=== PATIENT | female | born 1955 | race Caucasian/White ===

== ENCOUNTER → 2018-03-21 13:05 | Outpatient (CLI) | payer OTHER, SELFPAY ==
[2018-03-21 14:36] LABS: Anion Gap 9 (5-15); BUN 20 mg/dL (7-18); Calcium,Total 8.7 mg/dL (8.5-10.1); Chloride 100 mmol/L (98-107); Creatinine, Serum 0.87 mg/dL (0.55-1.02); EST Glomerular Filtration Rate 70 mL/min (>60); Est Glom Filt Rate - Afr Amer 85 mL/min (>60); Glucose 97 mg/dL (74-106); Sodium Level 138 mmol/L (136-145)
== END ==
PROVIDERS: Family Provider Family Medicine; PCP Family Medicine; Visit Provider Internal Medicine Cardiovascular Disease
DX: I47.1 Supraventricular tachycardia (principal); Z79.899 Other long term (current) drug therapy
CPT/HCPCS: 36415; 80048

== ENCOUNTER → 2018-04-02 09:46 | Outpatient (CLI) | payer OTHER, SELFPAY ==
[2018-04-02 11:01] LABS: Erythrocyte Sedimentation Rate 13 mm/hr (0-30)
[2018-04-02 11:24] LABS: BUN 17 mg/dL (7-18); Creatinine, Serum 0.93 mg/dL (0.55-1.02); EST Glomerular Filtration Rate 65 mL/min (>60); Glucose 87 mg/dL (74-106)
[2018-04-02 11:25] LABS: Anion Gap 7 (5-15); BUN/Creat Ratio 18.3 RATIO (10-20); Chloride 107 mmol/L (98-107); Est Glom Filt Rate - Afr Amer 78 mL/min (>60); Potassium 4.1 mmol/L (3.5-5.1); Sodium Level 143 mmol/L (136-145)
[2018-04-02 11:30] LABS: CRP 6.38 mg/L (0.0-3.0)
== END ==
PROVIDERS: Internal Medicine Cardiovascular Disease; Family Provider Family Medicine; PCP Family Medicine; Visit Provider Ophthalmology
DX: E87.6 Hypokalemia (principal); H34.231 Retinal artery branch occlusion, right eye
CPT/HCPCS: 36415; 80048; 85652; 86140

== ENCOUNTER → 2018-04-11 12:55 | Outpatient (CLI) | payer OTHER, SELFPAY ==
--- NOTE | 2018-04-11 12:55 | DT_ITS ---
This patient was seen during an EMR downtime April 04, 2018 - April 11, 2018. This patient may have a combination of paper and electronic documentation or all paper documentation. All documentation is viewable within the e-chart portion of [employer] for each patient visit.
--- NOTE | 2018-04-11 12:59 | CDU_ITS ---
Reason For Study: Branch retinal artery occlusion Rt. Velocities/BP Lt. Velocities/BP Prox CCA 97.9/17.0 cm/sec. Prox CCA 110.0/18.9 cm/sec. Mid CCA 87.9/21.7 cm/sec. Mid CCA 104.0/27.5 cm/sec. Dist CCA 80.9/24.0 cm/sec. Dist CCA 102.0/26.7 cm/sec. Prox ICA 89.7/39.9 cm/sec. Prox ICA 91.5/25.8 cm/sec. Mid ICA 118.0/39.7 cm/sec. Mid ICA 79.8/31.9 cm/sec. Dist ICA 73.9/27.0 cm/sec. Dist ICA 102.0/39.3 cm/sec. Rt. ICA/CCA = 1.3. Lt. ICA/CCA = .98. Prox ECA 87.6/21.4 cm/sec. Prox ECA 67.4/13.5 cm/sec. Rt. Vert. 55.7/19.9 cm/sec. Lt. Vert. 48.7/18.8 cm/sec. Right Extracranial There is intimal thickening but no significant atherosclerotic plaque noted in the right common carotid artery. There is no significant atherosclerotic plaque noted in the right internal carotid artery. The right internal carotid artery is very tortuous. There is no significant atherosclerotic plaque noted in the right external carotid artery. Antegrade flow is noted in the right vertebral artery. Left Extracranial There is intimal thickening but no significant atherosclerotic plaque noted in the left common carotid artery. There is no significant atherosclerotic plaque noted in the left internal carotid artery. The left internal carotid artery is very tortuous. There is no significant atherosclerotic plaque noted in the left external carotid artery. Antegrade flow is noted in the left vertebral artery. Procedure Carotid Duplex [id number]. Exam performed in department. Interpretation Summary No significant atherosclerotic plaque or stenosis noted in the internal carotid arteries bilaterally. Flow within the vertebral arteries is antegrade bilaterally. Ordering Physician: Madi Astudillo Referring Physician: Madi Astudillo Performed By: Shannon Hunter RVT
== END ==
PROVIDERS: Family Provider Family Medicine; PCP Family Medicine; Visit Provider Ophthalmology
DX: H34.231 Retinal artery branch occlusion, right eye (principal)
CPT/HCPCS: 93880

== ENCOUNTER → 2018-05-18 11:40 | Outpatient (CLI) | payer OTHER, SELFPAY ==
[2018-05-18 13:01] LABS: Anion Gap 6 (5-15); BUN 14 mg/dL (7-18); Calcium,Total 9.1 mg/dL (8.5-10.1); Chloride 103 mmol/L (98-107); Creatinine, Serum 0.93 mg/dL (0.55-1.02); EST Glomerular Filtration Rate 64 mL/min (>60); Est Glom Filt Rate - Afr Amer 78 mL/min (>60); Glucose 97 mg/dL (74-106); Sodium Level 141 mmol/L (136-145)
== END ==
PROVIDERS: Family Provider Family Medicine; PCP Family Medicine; Visit Provider Internal Medicine Cardiovascular Disease
DX: I10 Essential (primary) hypertension (principal)
CPT/HCPCS: 36415; 80048

== ENCOUNTER → 2018-08-12 16:46 | Outpatient (CLI) | payer OTHER, SELFPAY ==
--- NOTE | 2018-08-12 16:48 | US_ITS ---
STUDY: ULTRASOUND OF THE FEMALE PELVIS - COMPLETE REASON FOR EXAM: Female, 62 years old. POST MENOPAUSAL BLEEDING TECHNIQUE: Transabdominal and Transvaginal. Endovaginal study was performed because there is poor visualization of the ovaries. TECHNICAL QUALITY: Adequate. COMPARISON: None. FINDINGS: The uterus is anteverted and is in a midline position. The uterus measures 6.2 x 4.2 x 2.4 cm. Normal uterine cervix. The endometrium measures 3 mm in thickness, and is hyperechoic. The endometrium there is a cystic focus. This may be artifact. There is no demonstrated myometrial mass. I.U.D. - The patient does not have an I.U.D. Right and left ovary are not visualized. There is no fluid in the cul-de-sac. Polycystic ovary disease: No. US/Transvaginal Non- IMPRESSION: Normal female pelvis. Normal endometrial thickness. Question of an endometrial cyst. Electronically Signed: Alexander Zarate MD at 17:52 EDT , Service support ,
== END ==
PROVIDERS: Family Provider Family Medicine; PCP Family Medicine; Referring Provider Obstetrics & Gynecology Gynecology; Visit Provider Obstetrics & Gynecology Gynecology
DX: N95.0 Postmenopausal bleeding (principal)
CPT/HCPCS: 76830

== ENCOUNTER → 2019-05-19 07:39 | Outpatient (CLI) | payer OTHER, SELFPAY ==
[2018-04-12 16:07] VITALS: BMI 27.7
[2019-05-19 08:24] LABS: Anion Gap 6 (5-15); BUN 19 mg/dL (7-18); BUN/Creat Ratio 19.6 RATIO (10-20); Calcium,Total 8.8 mg/dL (8.5-10.1); Chloride 102 mmol/L (98-107); Cholesterol 213 mg/dL (200); Creatinine, Serum 0.97 mg/dL (0.55-1.02); EST Glomerular Filtration Rate 61 mL/min (>60); Est Glom Filt Rate - Afr Amer 74 mL/min (>60); Glucose 102 mg/dL (74-106); High Density Lipoprotein 71 mg/dL; Potassium 3.6 mmol/L (3.5-5.1); Sodium Level 139 mmol/L (136-145); Triglycerides 111 mg/dL; Very Low Density Lipoprotein 22 mg/dL (5-40)
== END ==
PROVIDERS: Family Provider Family Medicine; PCP Family Medicine; Referring Provider Family Medicine; Visit Provider Family Medicine
DX: I10 Essential (primary) hypertension (principal); E78.00 Pure hypercholesterolemia, unspecified; I47.1 Supraventricular tachycardia
CPT/HCPCS: 36415; 80048; 80061; 86140

== ENCOUNTER → 2019-11-17 13:26 | Outpatient (CLI) | payer OTHER, SELFPAY ==
[2018-04-12 16:07] VITALS: BMI 27.7
== END ==
PROVIDERS: PCP Family Medicine; Referring Provider Family Medicine; Visit Provider Family Medicine
DX: R39.9 Unspecified symptoms and signs involving the genitourinary system (principal)
CPT/HCPCS: 87086; 87088

== ENCOUNTER → 2019-12-08 16:43 | Outpatient (CLI) | payer MEDICARE, SELFPAY ==
--- NOTE | 2019-12-08 16:48 | US_ITS ---
STUDY: RENAL ULTRASOUND - COMPLETE REASON FOR EXAM: Female, 64 years old. RECCURRING UTIS TECHNIQUE: Ultrasound evaluation of the kidneys was performed with real-time and static parikh-scale imaging. COMPARISON: None. FINDINGS: RIGHT KIDNEY: Normal location of the right kidney, which is normal in size. The right kidney measures 11.2 x 4.7 x 6.4 cm. There is a normal cortex of the right kidney. The renal cortex measures 2.1 cm. There are 2 anechoic cysts of the inferior right kidney measuring 2.6 x 1.5 x 1.6 cm and 1.3 x 1.7 x 2.2 cm. There are no right renal calculi. There is no right hydronephrosis. DISTAL RIGHT URETER: There is non-visualization of the distal right ureter. There is no demonstrated right ureterovesical junction calculus. There is a visualized right ureteral jet. LEFT KIDNEY: Normal location of the left kidney, which is normal in size. The left kidney measures 10.1 x 3.9 x 4.8 cm. There is a normal cortex of the left kidney. The renal cortex measures 1.1 cm. There is no left renal mass or cyst. 6-7 mm echogenic focus of the left kidney with Doppler artifact suggests possibility of a small calculus. There is no left hydronephrosis. DISTAL LEFT URETER: There is non-visualization of the distal left ureter. There is no demonstrated left ureterovesical junction calculus. There is a visualized left ureteral jet. BLADDER: The distended urinary bladder has a volume of 257 ml. There is a normal wall thickness of the distended urinary bladder. There is no demonstrated mass within the urinary bladder. There are no demonstrated bladder calculi. US/Kidney and Bladder IMPRESSION: 1. No hydronephrosis. 2. Possible 6-7 mm left renal calculus. 3. Right renal cysts. Electronically Signed: Heri Chamberlain MD (Brooks) at 14:48 EST , Service support ,
== END ==
PROVIDERS: PCP Family Medicine; Referring Provider Urology; Visit Provider Urology
DX: N39.0 Urinary tract infection, site not specified (principal)
CPT/HCPCS: 76770

== ENCOUNTER → 2019-12-20 18:29 | Outpatient (CLI) | payer MEDICARE, SELFPAY ==
--- NOTE | 2019-12-20 18:30 | CT_ITS ---
HISTORY: RECURRENT UTI ADDITIONAL HISTORY: None provided. TECHNIQUE: CT images were obtained of the abdomen and pelvis without IV contrast. Enteric contrast was not given. Number of images including paperwork: 445. A radiation dose optimization technique was used for this scan. COMPARISON: None FINDINGS: Evaluation of the abdominopelvic organs is limited in the absence of contrast. LOWER THORAX: No consolidation or pleural effusion. Large hiatal hernia partially visualized. Linear basilar subsegmental atelectasis versus scarring. LIVER: Multiple low density hepatic lesions compatible with cysts. GALLBLADDER: No radiopaque calculi. BILE DUCTS: No significant biliary dilatation. SPLEEN: Unremarkable. PANCREAS: Unremarkable. ADRENAL GLANDS: Unremarkable. KIDNEYS/URETERS: 3 cm right renal cyst. 1.2 cm left renal cyst. 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 BOWEL: No bowel obstruction. No significant bowel wall thickening. No localized inflammation. Colonic diverticulosis. Large amount of colonic stool. APPENDIX: Normal. FREE FLUID: No significant free fluid. FREE AIR: None. LYMPH NODES: No pathologic appearing adenopathy. PERITONEUM, RETROPERITONEUM AND MESENTERY: Otherwise unremarkable. VASCULATURE: Unremarkable as imaged. ABDOMINAL WALL: Unremarkable. PELVIS: Unremarkable bladder. OSSEOUS AND SOFT TISSUE STRUCTURES: No acute skeletal findings. Severe thoracolumbar scoliosis. CT/Abdomen/Pelvis without Cont IMPRESSION: No acute abdominopelvic abnormality. Large amount of colonic stool. Colonic diverticulosis. Additional findings above. Individualized dose optimization techniques were used for this CT. at 0253 Reported and signed by: Selene Wright MD Electronically Signed: Selene Wright MD at 2:53 EST Tel , Service support ,
== END ==
PROVIDERS: PCP Family Medicine; Referring Provider Urology; Visit Provider Urology
DX: N20.0 Calculus of kidney (principal)
CPT/HCPCS: 74176

== ENCOUNTER → 2020-05-07 07:38 | Outpatient (CLI) | payer MEDICARE, SELFPAY ==
[2018-04-12 16:07] VITALS: BMI 27.7
[2020-05-07 08:46] LABS: Anion Gap 5 (5-15); BUN 17 mg/dL (7-18); BUN/Creat Ratio 17.8 RATIO (10-20); CRP, High Sensitivity Cardiac 7.46 mg/L; Calcium,Total 9.3 mg/dL (8.5-10.1); Chloride 101 mmol/L (98-107); Cholesterol 202 mg/dL (200); Creatinine, Serum 0.96 mg/dL (0.55-1.02); EST Glomerular Filtration Rate 62 mL/min (>60); Est Glom Filt Rate - Afr Amer 75 mL/min (>60); Glucose 98 mg/dL (74-106); High Density Lipoprotein 77 mg/dL; Potassium 3.7 mmol/L (3.5-5.1); Sodium Level 137 mmol/L (136-145); Triglycerides 91 mg/dL; Very Low Density Lipoprotein 18 mg/dL (5-40)
== END ==
PROVIDERS: PCP Family Medicine; Referring Provider Family Medicine; Visit Provider Family Medicine
DX: I10 Essential (primary) hypertension (principal); R79.82 Elevated C-reactive protein (CRP)
CPT/HCPCS: 36415; 80048; 80061; 86141

== ENCOUNTER → 2020-06-05 07:49 | Outpatient (CLI) | payer MEDICARE, SELFPAY ==
[2018-04-12 16:07] VITALS: BMI 27.7
[2020-06-05 08:22] LABS: Anion Gap 3 (5-15); BUN 17 mg/dL (7-18); BUN/Creat Ratio 17.4 RATIO (10-20); Calcium,Total 8.6 mg/dL (8.5-10.1); Chloride 106 mmol/L (98-107); Creatinine, Serum 0.98 mg/dL (0.55-1.02); EST Glomerular Filtration Rate 61 mL/min (>60); Est Glom Filt Rate - Afr Amer 73 mL/min (>60); Glucose 94 mg/dL (74-106); Potassium 3.8 mmol/L (3.5-5.1); Sodium Level 138 mmol/L (136-145)
== END ==
PROVIDERS: PCP Family Medicine; Referring Provider Family Medicine; Visit Provider Family Medicine
DX: I10 Essential (primary) hypertension (principal)
CPT/HCPCS: 36415; 80048

== ENCOUNTER → 2021-02-25 07:52 | Outpatient (CLI) | payer MEDICARE, SELFPAY ==
[2018-04-12 16:07] VITALS: BMI 27.7
[2021-02-25 08:14] LABS: Absolute Lymphocyte Count 2.31 X10^3/uL (0.83-4.51); Absolute Neutrophil Count 4.1 X10^3/uL (2.0-7.7); Basophil# 0.09 X10^3/uL; Basophil% 1.2 % (0-1); Eosinophils% 5.4 % (0-5); Hematocrit 40.2 % (37-47); Hemoglobin 12.4 g/dL (12.0-15.0); Lymphocyte # 2.31 X10^3/ul (0.83-4.51); Mean Corp Hgb Conc 30.8 g/dL (32-36); Mean Corpuscular Hgb 27.7 pg (27.0-32.0); Mean Corpuscular Volume 89.9 fL (81-99); Mean Platelet Vol. 8.2 fl (6.2-12.0); Monocyte# 0.57 X10^3/uL; Monocyte% 7.7 % (0-10); NRBC Flagged by Analyzer 0 % (0-5); Neutrophil # 4.07 X10^3/uL (2.7-7.7); Neutrophil % 54.6 % (47-70); Platelet Count 363 K/mm3 (150-450); RBC Distribution Width CV 15.8 % (11.6-14.6); RBC Distribution Width SD 52.6 fl (35.1-43.9); Red Blood Count 4.47 M/mm3 (4.2-5.4); White Blood Count 7.5 K/mm3 (4.4-11.0)
[2021-02-25 08:51] LABS: AST(SGOT) 10 U/L (15-37); Alanine Aminotransfer ALT/SGPT 16 U/L (13-56); Alkaline Phosphatase 92 U/L (45-117); Anion Gap 3 (5-15); BUN 19 mg/dL (7-18); BUN/Creat Ratio 18.6 RATIO (10-20); Calcium,Total 8.9 mg/dL (8.5-10.1); Chloride 102 mmol/L (98-107); Cholesterol 236 mg/dL (200); Creatinine, Serum 1.02 mg/dL (0.55-1.02); EST Glomerular Filtration Rate 58 mL/min (>60); Est Glom Filt Rate - Afr Amer 70 mL/min (>60); Globulin 3.9 g/dL (2.2-4.2); Glucose 106 mg/dL (74-106); High Density Lipoprotein 88 mg/dL; Potassium 4.1 mmol/L (3.5-5.1); Protein, Total 7.9 g/dL (6.4-8.2); Sodium Level 137 mmol/L (136-145); Triglycerides 103 mg/dL; Very Low Density Lipoprotein 21 mg/dL (5-40)
== END ==
PROVIDERS: PCP Family Medicine; Referring Provider Family Medicine; Visit Provider Family Medicine
DX: I10 Essential (primary) hypertension (principal); E78.00 Pure hypercholesterolemia, unspecified
CPT/HCPCS: 36415; 80053; 80061; 85025

== ENCOUNTER 2021-12-18 09:05 | Outpatient (CLI) | payer MEDICARE, SELFPAY ==
--- NOTE | 2021-12-18 09:10 | EKG12_ITS ---
Test Reason : PREOP Blood Pressure : / mmHG Vent. Rate : 098 BPM Atrial Rate : 098 BPM P-R Int : 164 ms QRS Dur : 086 ms QT Int : 346 ms P-R-T Axes : 038 -21 058 degrees QTc Int : 441 ms Normal sinus rhythm Inferior infarct , age undetermined Anterior infarct , age undetermined Abnormal ECG Confirmed by HUGH ALLRED, SHANNAN ([id number]), editor managing newspaper VELVET ORONA ([id number]) on 12/18/2021 1:38:31 PM Referred By: Lucho Lombardi Confirmed By:CITLALI REESE MD
--- NOTE | 2021-12-18 09:11 | RAD_ITS ---
STUDY: X-RAY CHEST REASON FOR EXAM: Female, 66 years old. Preop for hand surgery TECHNIQUE: 2 PA and 2 lateral views of the chest. COMPARISON: 2016 FINDINGS: Lungs are expanded, no superimposed acute pulmonary process. There is a stable retrocardiac hiatal hernia causing compressive atelectasis in the medial left lung base. There is no demonstrated pleural abnormality. Normal size heart. Normal mediastinum and adriana. Normal visualized pulmonary arteries. There is atherosclerotic calcification of the aortic arch with tortuosity. There are diffuse degenerative changes of the visualized thoracic spine with a rotatory scoliosis.. Normal visualized ribs, clavicles, and shoulders. There is no demonstrated abnormality of the visualized soft tissue structures of the upper abdomen. RAD/Chest PA and Lateral IMPRESSION: No acute pulmonary process Stable large retrocardiac hiatal hernia causing compressive atelectasis in the medial left lung base Electronically Signed: Vincent Mclaughlin MD at 16:19 EST ,
[2021-12-18 11:33] LABS: Hematocrit 41.8 % (37-47); Hemoglobin 13.5 g/dL (12.0-15.0); Mean Corp Hgb Conc 32.3 g/dL (32-36); Mean Corpuscular Hgb 29.3 pg (27.0-32.0); Mean Corpuscular Volume 90.7 fL (81-99); Mean Platelet Vol. 8.5 fl (6.2-12.0); Platelet Count 402 K/mm3 (150-450); RBC Distribution Width CV 14.5 % (11.6-14.6); RBC Distribution Width SD 48.1 fl (35.1-43.9); Red Blood Count 4.61 M/mm3 (4.2-5.4); White Blood Count 7.7 K/mm3 (4.4-11.0)
[2021-12-18 11:39] LABS: Prothrombin Time (Protime)PT. 12.8 SECONDS (11.7-14.9)
[2021-12-18 11:47] LABS: Partial Thromboplast Time 25.6 Seconds (24.1-36.2)
[2021-12-18 12:06] LABS: Anion Gap 4 (5-15); BUN 23 mg/dL (7-18); BUN/Creat Ratio 20.5 RATIO (10-20); Calcium,Total 9.7 mg/dL (8.5-10.1); Chloride 100 mmol/L (98-107); Creatinine, Serum 1.12 mg/dL (0.55-1.02); EST Glomerular Filtration Rate 52 mL/min (>60); Est Glom Filt Rate - Afr Amer 62 mL/min (>60); Glucose 95 mg/dL (74-106); Potassium 4.1 mmol/L (3.5-5.1); Sodium Level 136 mmol/L (136-145)
== END 2021-12-18 23:59 | disposition home or self-care (01) ==
PROVIDERS: PCP Registered Nurse; Referring Provider Student in an Organized Health Care Education/Training Program; Visit Provider Student in an Organized Health Care Education/Training Program
DX: Z01.810 Encounter for preprocedural cardiovascular examination (principal); Z01.818 Encounter for other preprocedural examination; Z01.811 Encounter for preprocedural respiratory examination; R94.31 Abnormal electrocardiogram [ECG] [EKG]; Z79.01 Long term (current) use of anticoagulants
CPT/HCPCS: 36415; 71046; 80048; 85027; 85610; 85730; 93005

== ENCOUNTER 2022-02-25 12:00 | Outpatient (RCR) | payer MEDICARE, SELFPAY ==
--- NOTE | 2022-02-03 14:26 | HP.OTEVAL ---
Patient's Visit Information BRANDNO BARRIGA is a 66 year old F, referred to Occupational Therapy by Dr. Lucho Lombardi DO, with a diagnosis of Unil. 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 Date of Evaluation: 01/30/22 Occupational Therapist: Nilda Sullivan, AURAR/Dante, CHT - Subjective Pt. is a 66 y/o female here to right thumb spica custom orthosis fabrication. She has a soft cast on R hand/wrist. Her significant other present for eval. Per pt. report she had this sx. about 8 years ago. pt continued to have difficulty with pain- she then decided to have another reconstruction sx to decrease her pain and increase her IND. with ADLs and IADLS. Pt. had tightrope suspensionplasty on 12-29-21, MCP fusion 40 degrees. She had a CMC arthroplasty on 12-29-21, about 5 weeks ago, cast off today 01-30-22 and soft splint on. She is a retired nurse, arrived with significant other. - ADLs Dressing: Bra, Button shirt, Coat, Pants, Socks Fasteners: Buttons, Zippers Bathing: Handle washcloth & soap, Wash hair, Squeeze shampoo bottle Comments: compensating by using L hand Kitchen: Chop with knife, Peel fruits & vegetables, Open jars, Open bottle caps, Lift gallon of milk, Pour from pitcher, Lift saucepan, Take dish out of oven, Load/unload plate grainer apprentice, Place dish in microwave Household: Vacuum, Sweep/mop, Laundry Miscellaneous: Use cell phone, Unlock front door, Open medication bottle, Hold change, Use computer keyboard, Open doors/Including car door Comments: pt. demo'd difficulty with doffing/donning jacket and using zipper. Pt. stating she is having difficulty with all ADL and IADL tasks as she is R handed. She has been compensating by using L hand as much as possible and relying on significant other. - Pain Right Wrist 0 - Objective Her hand has swelling edema, not pitting no c/o numbness or tingling. No c/o pain. - ROM Shoulder: WFL Elbow: WFL Forearm: WFL Wrist: -5*flex, 35*ext R, L flex 40*, ext35*, UD L 35* R30* Radial L15* R40* CMC: 10* R, 20L MP: 65*L, Fusion of R IP: 59*L, 1*R ROM Comments: all other digits moving well- sore but able to make light composite fist - Strength Shoulder: WFL Elbow: WFL Forearm: WFL Wrist: R not tested Multi Punch Operator: NT on R , 50# L Lateral Pinch: NT R, 15# L Tripod Pinch: NT R,16# L Tip-to-Tip Pinch: NT R, 8# L Strength Comments: will test strength at later date - Edema Wrist: R- 6 3/4 PIP: R-1st 7 7 7 11/04 4th 5 / thumb 8 - Sensation Stereognosis: Normal - Right, Normal - Left Kinesthesia: Normal - Right, Normal - Left Proprioception: Normal - Right, Normal - Left Sensation Comments: pt. denied sensation deficits - Quick DASH-Disab of Arm,Shoulder& Hand Quick DASH Score: 70.4525 - Goals Goal:: wiill not initiate goal until 6-8 weeks s/p. pt. to improve R hand strength by 30# for increased ind. with ADL independence by d.c Goal:: pt. to increase R thumb IP ROM by 45 degrees for independence with UB dressing within 8 weeks. Goal:: Pt. to increase R hand dexterity/coordination for ADL tasks and home management by d/c Goal:: Pt. to complete UB dressing at Mod I level by week 12 s/p from sx Goal:100% adherence to protocol: Yes Comment: Tightrope protocol Goal:Daily scar massage when approriate: Yes Goal:ROM equal to unaffected hand: Yes Goal:Multi Punch Operator/Pinch strength at least 75% of unaffected hand: Yes Goal:No pain with affected hand use: Yes Goal:PIP Circumferences equal to unaffected hand: Yes - Rehabilitation General Assessment: Pt. is 5 weeks post op of Tightrope suspensionplasty. Pt. is in need of custom orthosis. She has limited ROM at this time and therefore has difficulty with ADL & IADL tasks. pt demo need for skilled OT services 2x a week for 6 weeks -will be provided to increase AROM, scar management, and strengthening of dominant hand per protocol and instructions. Per report: Pt. is 66 y/o female, right hand dominant. She underwent right first metacarpal joint arthroplasty with ligamentous reconstruction tendon interposition within FCR tendon by another provider 10 years ago. Therapy session was directly supervised and doc. reviewed and approved by Nilda ALEAMN/Dante, CHT. Rehabilitation Potential: Excellent - Anticipated Interventions A/AAROM/PROM, Strengthening, Edema Control, Scar Care, Massage, Wound Care - Visit Plan Frequency: 2x /Week Duration: 6 Weeks General Plan: 4 weeks post op: pt. to begin AROM to thumb CMC joint. Include abduction/abduction, flexion, & extension. Avoid thumb opposition until 8 weeks post op. Fore-arm thumb spica splint to be worn at night/sleeping. 6 weeks post op: forearm-based thumb spica splint to be discontinued. Progressive strengthening exercise program. 10 weeks post op: if pt. has not achieved functional ROM continue OT for 2-4 more weeks. 12 weeks post op: pt. to resume normal daily activities. TEXT: Thank you for the opportunity to evaluate your patient. For Medicare and Medicare HMO plans, please review the plan of care and approve it. It will need to be FAXED BACK to us at [phone] for Medicare purposes. Please let me know if there are questions or concerns regarding this plan of care. Physician Signature: Date:
--- NOTE | 2022-02-19 08:25 | HP.OTREVAL ---
Dr. Lucho Lombardi, DO, It has been my pleasure to treat BRANDON BARRIGA over the last 7 visits for Unil. 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 Please see the progress note below for an update on the occupational therapy plan of care! Subjective: Pt arrived wearing comfort cool brace when out and at night sleeping- ( therapist advised wearing orthosis at night vs comfort cool for 2 more weeks). States yesterday was the worse day with swelling in a long time but reports she did not do anything abnormal- went to [employer] to pts boat went shopping and out to eat. Today is better. Appt Wednesday with after her therapy -. pt is pleased she does not have pain with tasks just concerned with swelling- pt states she has issues with inflammation in her body Objective/Function: Thumb IP ROM 32*. wrist ROM 68*/34* ( tight). R thumb IP 30*. R wrist 6 3/4 , L wrist 6 1/4. R MCP's 7 3/4 , L MCP's 7 1/2. R IF proximal to PIP 7 cm, L IF 6cm. R MF proximal to PIP 7 cm, L MF 6cm. RRF proximal to PIP 6cm, LRF 5cm. RLF proximal to PIP 5cm, LLF 5cm. pt is wearing her comfort cool during the day when out of home-. and sometimes with daily tasks- states she is sleeping in comfort cool thumb brace ( therapist advised to sleep in orthosis) until week 9 due to swelling pt struggles with continued ulnar deviation of wrist with resting her arm on table or in lap-. pt denes pain just struggles with swelling ( would pt benefit from anti inflammatory). Therapy has ed. pt on wrist and thumb ergonomics- Joint protection and has initiated strengthening to pts tolerance- pt has returned to performing all ADLS at this time with some compensation. Plan Frequency: 2x /Week Duration: 3 Weeks Plan: pt to see Wednesday for follow-up pain not really issue just swelling- pt is progressing. . Start BTE. add in UB shoulder/elbow and forearm along with project development manager and wrist- pinch to pts. dominga. Goals - Goals Patient Goals: Regain Mobility, Regain Strength, Decrease Swelling/Stiffness, Improve Fine Motor Skills, Use Hand/Wrist/Arm Normally Again, Increase ROM, Be More Independent in ADLS, Resume Former Household Responsibilities (Cooking,Cleaning,Yard, etc.) Other: R handed Goal:: wiill not initiate goal until 6-8 weeks s/p. pt. to improve R hand strength by 30# for increased ind. with ADL independence by d.c Goal:: pt. to increase R thumb IP ROM by 45 degrees for independence with UB dressing within 8 weeks. Goal:: Pt. to increase R hand dexterity/coordination for ADL tasks and home management by d/c Goal:: Pt. to complete UB dressing at Mod I level by week 12 s/p from sx Goal:100% adherence to protocol: Yes Goal:Daily scar massage when approriate: Yes Goal:ROM equal to unaffected hand: Yes Goal:Car Cleaning Supervisor/Pinch strength at least 75% of unaffected hand: Yes Goal:No pain with affected hand use: Yes Goal:PIP Circumferences equal to unaffected hand: Yes Anticipated Interventions Anticipated Interventions: A/AAROM/PROM, Strengthening, Edema Control, Scar Care, Massage, Wound Care Please do not hesitate to contact me at [phone] by phone or if you have questions or concerns regarding this new plan of care! Sincerely, Nilda Sullivan, OTR/L, CHT
--- NOTE | 2022-02-27 07:55 | HP.OTDCSUM ---
It has been my pleasure to treat BRANDON BARRIGA under orders from Dr. Lucho Lombardi DO, for the diagnosis of Unil. 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 Please see the following information for a summary of their discharge status. % Improvement: 85 Objective/Function: R Linen Room Houseperson 20#, L Linen Room Houseperson 25#. Thumb IP ROM 35*. wrist ROM 68*/34* ( tight). R thumb IP 30*. R wrist 6 01/06 , L wrist 6 11/04. R MCP's 7 01/02 , L MCP's 7 11/02. R IF proximal to PIP 6.5 cm, L IF 6cm. R MF proximal to PIP 7 cm, L MF 6cm. RRF proximal to PIP 5 5/8cm, LRF 5cm. RLF proximal to PIP 5cm, LLF 4.5cm. pt is wearing her comfort cool during the day when out of home-. and sometimes with daily tasks- states she is sleeping in comfort cool thumb brace ( therapist advised to sleep in orthosis) until week 9 due to swelling pt struggles with continued ulnar deviation of wrist with resting her arm on table or in lap-. pt denes pain just struggles with swelling ( would pt benefit from anti inflammatory). Therapy has ed. pt on wrist and thumb ergonomics- Joint protection and has initiated strengthening to pts tolerance- pt has returned to performing all ADLS at this time with some compensation. Patient Goals: Regain Mobility, Regain Strength, Decrease Swelling/Stiffness, Improve Fine Motor Skills, Use Hand/Wrist/Arm Normally Again, Increase ROM, Be More Independent in ADLS, Resume Former Household Responsibilities (Cooking,Cleaning,Yard, etc.) Other: R handed Goal:: wiill not initiate goal until 6-8 weeks s/p. pt. to improve R hand strength by 30# for increased ind. with ADL independence by d.c Goal:: pt. to increase R thumb IP ROM by 45 degrees for independence with UB dressing within 8 weeks. Goal:: Pt. to increase R hand dexterity/coordination for ADL tasks and home management by d/c Goal:: Pt. to complete UB dressing at Mod I level by week 12 s/p from sx Goal:100% adherence to protocol: Yes Goal:Daily scar massage when approriate: Yes Goal:ROM equal to unaffected hand: Yes Goal:Linen Room Houseperson/Pinch strength at least 75% of unaffected hand: Yes Goal:No pain with affected hand use: Yes Goal:PIP Circumferences equal to unaffected hand: Yes Plan: Pt would like discharged , pt able to open jars, not new, and use of clothes pins If there are questions or concerns regarding this patient's occupational therapy, please fell free to call me at [phone]. Thank you for the referral of this patient. Sincerely, Nilda Sullivan, OTR/L, CHT
== END 2022-02-25 19:00 | disposition home or self-care (01) ==
LOC: OT 12:00
PROVIDERS: PCP Registered Nurse; Referring Provider Student in an Organized Health Care Education/Training Program; Visit Provider Student in an Organized Health Care Education/Training Program
DX: M18.31 Unilateral post-traumatic osteoarthritis of first carpometacarpal joint, right hand (principal)
CPT/HCPCS: 97110; 97140; 97165; 97530; 97760

== ENCOUNTER → 2022-02-27 | Outpatient (CLI) | payer MEDICARE, SELFPAY ==
[2022-02-27 09:31] LABS: Absolute Lymphocyte Count 2.44 X10^3/uL (0.83-4.51); Absolute Neutrophil Count 3.9 X10^3/uL (2.0-7.7); Basophil# 0.06 X10^3/uL; Basophil% 0.8 % (0-1); Eosinophils% 4.1 % (0-5); Hematocrit 37.7 % (37-47); Lymphocyte # 2.44 X10^3/ul (0.83-4.51); Lymphocyte % 33.7 % (19-41); Mean Corp Hgb Conc 31.8 g/dL (32-36); Mean Corpuscular Hgb 29.5 pg (27.0-32.0); Mean Corpuscular Volume 92.6 fL (81-99); Mean Platelet Vol. 8.2 fl (6.2-12.0); Monocyte% 6.9 % (0-10); NRBC Flagged by Analyzer 0 % (0-5); Neutrophil # 3.93 X10^3/uL (2.7-7.7); Neutrophil % 54.4 % (47-70); Platelet Count 421 K/mm3 (150-450); RBC Distribution Width CV 15.9 % (11.6-14.6); RBC Distribution Width SD 53.6 fl (35.1-43.9); Red Blood Count 4.07 M/mm3 (4.2-5.4); White Blood Count 7.2 K/mm3 (4.4-11.0)
[2022-02-27 10:19] LABS: ALB/GLOB Ratio 1.1 RATIO (0.9-2.4); AST(SGOT) 7 U/L (15-37); Alanine Aminotransfer ALT/SGPT 14 U/L (13-56); Albumin, Serum 3.8 g/dL (3.2-5.0); Alkaline Phosphatase 85 U/L (45-117); Anion Gap 3 (5-15); BUN 13 mg/dL (7-18); CRP, High Sensitivity Cardiac 8.12 mg/L; Calcium,Total 8.8 mg/dL (8.5-10.1); Chloride 107 mmol/L (98-107); Cholesterol 225 mg/dL (200); Creatinine, Serum 0.93 mg/dL (0.55-1.02); EST Glomerular Filtration Rate 64 mL/min (>60); Est Glom Filt Rate - Afr Amer 77 mL/min (>60); Globulin 3.6 g/dL (2.2-4.2); Glucose 112 mg/dL (74-106); High Density Lipoprotein 81 mg/dL; Potassium 3.9 mmol/L (3.5-5.1); Protein, Total 7.4 g/dL (6.4-8.2); Sodium Level 140 mmol/L (136-145); Triglycerides 105 mg/dL; Very Low Density Lipoprotein 21 mg/dL (5-40)
== END | disposition home or self-care (01) ==
LOC: LAB 09:02
PROVIDERS: PCP Registered Nurse; Referring Provider Registered Nurse; Visit Provider Registered Nurse
DX: E78.00 Pure hypercholesterolemia, unspecified (principal)
CPT/HCPCS: 36415; 80053; 80061; 85025; 86141

== ENCOUNTER → 2022-07-08 | Outpatient (CLI) | payer MEDICARE, SELFPAY ==
[2022-07-08 17:36] LABS: Anion Gap 7 (5-15); BUN 18 mg/dL (7-18); BUN/Creat Ratio 18.6 RATIO (10-20); Calcium,Total 9.2 mg/dL (8.5-10.1); Chloride 106 mmol/L (98-107); Creatinine, Serum 0.97 mg/dL (0.55-1.02); EST Glomerular Filtration Rate 61 mL/min (>60); Est Glom Filt Rate - Afr Amer 74 mL/min (>60); Glucose 105 mg/dL (74-106); Magnesium 2.3 mg/dL (1.6-2.6); Potassium 4.4 mmol/L (3.5-5.1); Sodium Level 139 mmol/L (136-145)
== END | disposition home or self-care (01) ==
LOC: LAB 16:30
PROVIDERS: PCP Family Medicine; Referring Provider Internal Medicine Cardiovascular Disease; Visit Provider Internal Medicine Cardiovascular Disease
DX: I10 Essential (primary) hypertension (principal)
CPT/HCPCS: 36415; 80048; 83735

== ENCOUNTER → 2023-01-25 | Outpatient (CLI) | payer MEDICARE, SELFPAY | END | disposition home or self-care (01) | LOC: PSN 09:29 | PROVIDERS: PCP Family Medicine; Visit Provider Nurse Practitioner Gerontology | DX: R00.0 Tachycardia, unspecified (principal) | CPT/HCPCS: 93225; 93226 ==

== ENCOUNTER → 2023-05-12 | Outpatient (CLI) | payer MEDICARE, SELFPAY ==
--- NOTE | 2023-05-12 08:58 | BI_ITS ---
MAMMOGRAPHY - BILATERAL SCREENING REASON FOR EXAM: Female, 67 years old. Routine annual screening examination. PERTINENT HISTORY: Non-contributory. TECHNIQUE: Digital bilateral breast ameya (3D mammographic acquisition) in the CC and MLO projections. 2-D mediolateral oblique (MLO) and craniocaudad (CC) views of both breasts were obtained. CAD: Full Field Digital Mammography with Computer Added Detection was performed. COMPARISON: Comparison is made with prior examination dated September 23, 2007. FINDINGS: Breast Composition: The breasts are heterogeneously dense, which may obscure small masses. There are no dominant masses or suspicious calcifications. Stable small benign-appearing bilateral axillary lymph nodes. No other significant abnormalities are identified. There has been no significant change since the prior study. BI/SCRN MAMM (CAD)W/AMEYA BILAT IMPRESSION: Stable bilateral screening mammogram. Yearly follow-up mammogram recommended. (A) ASSESSMENT CATEGORY: BIRADS Category 2: Benign. A letter regarding these results will be sent to the patient by the facility within 30 days. Approximately 10% of breast cancers are not detected by mammography. A normal mammogram should not delay biopsy of a clinically suspicious abnormality. [id number] Electronically Signed: Yimi Jones MD at 10:17 EDT ,
--- NOTE | 2023-05-12 09:15 | BD_ITS ---
STUDY: DUAL ENERGY X-RAY ABSORPTIOMETRY / DXA REASON FOR EXAM: Female, 67 years old. M85.89 TECHNIQUE: Bone Mineral Density (BMD) measurements of left forearm and bilateral hips were obtained. COMPARISON: None. FINDINGS: Left Femur Total: g/cm2 (0.720) / T-score (-1.8) / Z-score (-0.4) Left Femoral Neck: g/cm2 (0.554) / T-score (-2.7) / Z-score (-0.9) Right Femur Total: g/cm2 (0.720) / T-score (-1.8) / Z-score (-0.4) Right Femoral Neck: g/cm2 (0.554) / T-score (-2.7) / Z-score (-0.9) The T-Scores on the most recent prior examination were: Left Femur Total: which represents a worsening of 6.3%. Right Femur Total: which represents a worsening of 6.3%. BD/Dexa Bone Density Study IMPRESSION: The patient is considered osteoporotic as outlined below according to World Reid Organization (WHO) criteria with a high fracture risk. There has been worsening of bone density since the previous examination. Reference Information: The T-score is the number of standard deviations above or below the standard which is normal for young adults at their peak bone mineral density. The World Health Organization (WHO) interprets the T-scores as follows: Above -1 Normal bone density Between -1 and -2.5 Osteopenia Equal to / or below -2.5 Osteoporosis As a practical clinical guideline, osteopenia may be graded as follows: Mild -1 through -1.5 Moderate -1.6 through -2.0 Severe -2.1 through -2.4 The Z-score is the number of standard deviations above or below age-matched controls. A Z-score of less than -1.5 would be considered abnormal. References: 1. NIH Osteoporosis and Related Bone Diseases www osteo.org 2. International Society for Clinical Densitometry www iscd.org 3. National Osteoporosis Foundation www nof.org Electronically Signed: Yimi Jones MD at 15:27 EDT ,
== END | disposition home or self-care (01) ==
LOC: OPBD 08:57
PROVIDERS: PCP Family Medicine; Referring Provider Family Medicine; Visit Provider Family Medicine
DX: Z12.31 Encounter for screening mammogram for malignant neoplasm of breast (principal); M85.89 Other specified disorders of bone density and structure, multiple sites
CPT/HCPCS: 77063; 77067; 77080

== ENCOUNTER → 2023-05-27 | Outpatient (CLI) | payer MEDICARE, SELFPAY ==
[2023-05-27 10:21] LABS: Vitamin B12 754 pg/mL (211-911); Vitamin D,25 Hydroxy 74.6 ng/mL
[2023-05-27 10:24] LABS: Microalbumin,Random Urine 6.2 mg/L (NO RANGE EST.)
[2023-05-27 10:31] LABS: AST(SGOT) 13 U/L (15-37); Alanine Aminotransfer ALT/SGPT 16 U/L (13-56); Albumin, Serum 3.6 g/dL (3.2-5.0); Alkaline Phosphatase 61 U/L (45-117); Anion Gap 5 (5-15); BUN 22 mg/dL (7-18); Calcium,Total 8.7 mg/dL (8.5-10.1); Chloride 101 mmol/L (98-107); Cholesterol 217 mg/dL (200); EST Glomerular Filtration Rate 52 mL/min (>60); Est Glom Filt Rate - Afr Amer 63 mL/min (>60); Globulin 3.6 g/dL (2.2-4.2); Glucose 104 mg/dL (74-106); High Density Lipoprotein 66 mg/dL; Potassium 3.9 mmol/L (3.5-5.1); Protein, Total 7.2 g/dL (6.4-8.2); Sodium Level 136 mmol/L (136-145); Triglycerides 113 mg/dL; Very Low Density Lipoprotein 23 mg/dL (5-40)
== END | disposition home or self-care (01) ==
PROVIDERS: PCP Family Medicine; Referring Provider Family Medicine; Visit Provider Family Medicine
DX: I10 Essential (primary) hypertension (principal); M85.80 Other specified disorders of bone density and structure, unspecified site; K21.9 Gastro-esophageal reflux disease without esophagitis
CPT/HCPCS: 36415; 80053; 80061; 82043; 82306; 82607

== ENCOUNTER → 2024-10-04 | Outpatient (CLI) | payer MEDICARE, SELFPAY ==
[2024-10-04 09:47] LABS: Absolute Lymphocyte Count 2.36 X10^3/uL (0.83-4.51); Absolute Neutrophil Count 3.5 X10^3/uL (2.0-7.7); Basophil# 0.05 X10^3/uL; Basophil% 0.7 % (0-1); Eosinophil# 0.25 X10^3/uL; Eosinophils% 3.7 % (0-5); Hematocrit 37.8 % (37-47); Hemoglobin 11.7 g/dL (12.0-15.0); Lymphocyte # 2.36 X10^3/ul (0.83-4.51); Lymphocyte % 35.1 % (19-41); Mean Corpuscular Hgb 27.9 pg (27.0-32.0); Mean Platelet Vol. 8.6 fl (6.2-12.0); Monocyte# 0.53 X10^3/uL; Monocyte% 7.9 % (0-10); NRBC Flagged by Analyzer 0 % (0-5); Neutrophil # 3.52 X10^3/uL (2.7-7.7); Neutrophil % 52.3 % (47-70); Platelet Count 363 K/mm3 (150-450); RBC Distribution Width CV 15.7 % (11.6-14.6); RBC Distribution Width SD 51.6 fl (35.1-43.9); White Blood Count 6.7 K/mm3 (4.4-11.0)
[2024-10-04 10:21] LABS: ALB/GLOB Ratio 1.1 RATIO (0.9-2.4); AST(SGOT) 12 U/L (15-37); Alanine Aminotransfer ALT/SGPT 16 U/L (13-56); Albumin, Serum 3.7 g/dL (3.2-5.0); Alkaline Phosphatase 66 U/L (45-117); Anion Gap 5 (5-15); BUN 21 mg/dL (7-18); BUN/Creat Ratio 24.4 RATIO (10-20); Calcium,Total 8.7 mg/dL (8.5-10.1); Chloride 106 mmol/L (98-107); Cholesterol 241 mg/dL (200); Creatinine, Serum 0.86 mg/dL (0.55-1.02); EST Glomerular Filtration Rate 69 mL/min (>60); Est Glom Filt Rate - Afr Amer 84 mL/min (>60); Globulin 3.3 g/dL (2.2-4.2); Glucose 108 mg/dL (74-106); High Density Lipoprotein 75 mg/dL; Potassium 3.7 mmol/L (3.5-5.1); Sodium Level 141 mmol/L (136-145); Triglycerides 96 mg/dL; Very Low Density Lipoprotein 19 mg/dL (5-40)
[2024-10-04 12:18] LABS: Vitamin D,25 Hydroxy 62.8 ng/mL
== END | disposition home or self-care (01) ==
PROVIDERS: PCP Family Medicine; Referring Provider Family Medicine; Visit Provider Family Medicine
DX: I10 Essential (primary) hypertension (principal); K21.9 Gastro-esophageal reflux disease without esophagitis
CPT/HCPCS: 36415; 80053; 80061; 82306; 84443; 85025

== ENCOUNTER → 2024-10-17 | Outpatient (CLI) | payer MEDICARE, SELFPAY ==
[2024-10-17 15:35] LABS: Rheumatoid Factor < 10.0 IU/mL (<15)
== END | disposition home or self-care (01) ==
LOC: MFPLAB 11:29
PROVIDERS: PCP Family Medicine; Referring Provider Family Medicine; Visit Provider Family Medicine
DX: M19.90 Unspecified osteoarthritis, unspecified site (principal)
CPT/HCPCS: 36415; 86431

== ENCOUNTER 2024-11-07 11:30 | Outpatient (RCR) | payer MEDICARE, SELFPAY ==
--- NOTE | 2024-11-02 12:09 | HP.PTEVAL_ITS ---
Patient's Visit Information Visit Information Visit Information: BRANDON BARRIGA is a 69 year old F referred to Physical Therapy by Ignacia Mckeon MD with a diagnosis of LEFT HIP BURSITIS. Date of Evaluation: 11/02/24 Physical Therapist: Home Finch, PT, Cert MDT, OCS Visit Plan Frequency: 2x /Week Duration: 4 Weeks Plan: PT INTERVENTIONS STRENGTHENING EX'S HIP ( GLUT MEDIUS) , CORE STRENGTHENIN G ,MANUAL THERAPY STM /STICK ROLL IT BAND, AND MODALITIES Subjective Subjective: This 69 y/o female presents to physical therapy with left hip bursitis. Patient has had left lateral hip.gluteus pain for ~ 15 years. Patient condition has worse over the years . Patient patient seen Dr no medication no imaging. Aggravating stairs ascend stairs ,sleeping on sides and extended walking irritates back. Alleviating factors Justin-e over counter ,heat. Patient has had scoliosis since back surgery teenager. DR wants to try PT prior to doing cortisone injection. Denies paresthesia/tingling .Coughing/sneezing. Bending /lifting okay ,some pain with sitting. Patient condition affects QOL and function. Patient goals to decrease pain. SOCIAL: VOCATION: retired Pain Left Hip: Pain Intensity (Out of 10): 6 Pain Intensity Range: 10 Comment: at night when laying Objective Objective: POSTURE: mild forward posture ,mod scoliosis right ,with asymmetries pelvis and leg length GAIT: ambulates with lateral sway due to scoliosis PALAPTION: tender bursitis ,IT BAND LEFT AROM:hip flexion 110 degrees ,IR 45 degrees LUMBAR ROM: flexion min loss ,side glides mod/severe loss , extension severe loss FLEXABILITY: hamstrings WFL MMT: ( peak force) left hip flexion 23.2,right 25.9 ,hip abd right 19.8 ,left 18.1 ,quads/hams 4/5 ,ankle 4/5 Special Tests L Hip Scour: Negative L Hip Quadrant - Intraarticular Pathology: Negative L Hip Trendelenberg - Glut Medius: Positive L Hip Cristina - IT Band: Negative Balance/Special Test Scores Lower Extremity Functional Score: 44 Goals Goal 1:: Patient to be I with HEP for hip Goal Time Frame: 4-6 Weeks Goal 2:: Patient to improve peak force hip flexion/abduction by 5-10# to improve gait Goal Time Frame: 4-6 Weeks Goal 3:: Patient to demonstrate 50% improvement with less pain and improved function and sleeping Goal Time Frame: 4-6 Weeks Goal 4:: Patient to improve LFES score by 5 points to improve QOL Goal Time Frame: 4-6 Weeks Goal 5:: Patient be able to lay on either side less pain through night by 50% Goal Time Frame: 4-6 Weeks Rehabilitation Potential Physical Therapy Diagnosis: This patient has left hip pain with IT tendonitis and bursitis with pain ,weakness hip impairs gait and h/o scoliosis since teenager thus benefit from skilled PT Rehabilitation Potential: Good Anticipated Interventions Patient/Client Instruction: Educate patient on: Condition and Plan of Care For the Purpose of:: To decrease pain, To improve muscle performance and motor function, To improve ability to perform ADL's, To increase tolerance to activity/condition/position, To improve ability of physical actions for home/community/work/leisure, To decrease soft tissue restriction, To increase flexibility/ROM and To improve tolerance to ADL's Therapeutic Exercise to Include: Strength training, Balance training and Dynamic Lumbar Stabilization For the Purpose of:: To decrease pain, To improve muscle performance and motor function, To improve ability to perform ADL's, To increase tolerance to activity/condition/position, To improve performance and independence with ADL's, To improve ability of physical actions for home/community/work/leisure, To improve health of tissue, To decrease soft tissue restriction and To increase flexibility/ROM Manual Therapy Techniques to Include: Mobilization and Soft tissue mobilization For the Purpose of:: To decrease pain, To increase ROM, To improve nutrient delivery to tissue, To increase oxygenation perfusion, To improve health of tissue and To decrease soft tissue restriction TENS: Yes IF ES: Yes Cryotherapy (ice pack, ice massage): Yes Thermo therapy (hot pack): Yes Ultrasound (thermal/non thermal): Yes For the Purpose of:: To decrease pain, To increase ROM, To improve nutrient delivery to tissue, To increase oxygenation perfusion, To improve health of tissue and To decrease soft tissue restriction Text: Thank you for the opportunity to evaluate your patient. For Medicare and Medicare HMO plans, please review the plan of care and approve it. It will need to be FAXED BACK to us at [phone] for Medicare purposes. For Medicare only, by signing this I certify the plan of care. Please let me know if there are questions or concerns regarding this plan of care. Physician Signature: Date:
--- NOTE | 2025-03-08 11:50 | HP.PTDCNRP_ITS ---
Patient Information Patient Information: BRANDON BARRIGA was seen in my office for initial evaluation on 11/02/24. The following Plan of Care was established for this patient: POC Established Initial Frequency: 2x /Week Initial Duration: 4 Weeks Anticipated Interventions Patient/Client Instruction: Educate patient on: Condition and Plan of Care For the Purpose of:: To decrease pain, To improve muscle performance and motor function, To improve ability to perform ADL's, To increase tolerance to activity/condition/position, To improve ability of physical actions for camelia e/community/work/leisure, To decrease soft tissue restriction, To increase flexibility/ROM and To improve tolerance to ADL's Therapeutic Exercise to Include: Strength training, Balance training and Dynamic Lumbar Stabilization For the Purpose of:: To decrease pain, To improve muscle performance and motor function, To improve ability to perform ADL's, To increase tolerance to activity/condition/position, To improve performance and independence with ADL's, To improve ability of physical actions for home/community/work/leisure, To improve health of tissue, To decrease soft tissue restriction and To increase flexibility/ROM Manual Therapy Techniques to Include: Mobilization and Soft tissue mobilization For the Purpose of:: To decrease pain, To increase ROM, To improve nutrient delivery to tissue, To increase oxygenation perfusion, To improve health of tissue and To decrease soft tissue restriction TENS: Yes IF ES: Yes Cryotherapy (ice pack, ice massage): Yes Thermo therapy (hot pack): Yes Ultrasound (thermal/non thermal): Yes For the Purpose of:: To decrease pain, To increase ROM, To improve nutrient delivery to tissue, To increase oxygenation perfusion, To improve health of tissue and To decrease soft tissue restriction Last Seen Last Seen: This patient was last seen in our office . Pertinent comments regarding their Physical therapy will appear below: Patient was seen for PT for IT band and hip bursitis for HEP thus is d/c doing well At this point I will be discontinuing this patient from physical therapy. I would be happy to see this patient again in the future if found appropriate by the physician. Thank you! Home Finch, PT, Cert MDT, OCS Balance/Gait/Functional tests Balance/Special Test Scores Lower Extremity Functional Score: 44
== END 2024-11-07 19:00 | disposition home or self-care (01) ==
LOC: PT 11:30
PROVIDERS: PCP Family Medicine; Referring Provider Family Medicine; Visit Provider Family Medicine
DX: M70.72 Other bursitis of hip, left hip (principal)
CPT/HCPCS: 97110; 97162

== ENCOUNTER → 2025-04-17 | Outpatient (CLI) | payer MEDICARE, SELFPAY ==
--- NOTE | 2025-04-17 08:55 | RAD_ITS ---
PROCEDURE: CHEST PA AND LATERAL 04/17/2025 REASON FOR EXAM: HIATAL HERNIA TECHNIQUE: CHEST PA AND LATERAL COMPARISON: 12/18/2021. FINDINGS: Unchanged retrocardiac hiatal hernia. Unchanged S shaped scoliosis. The lungs are expanded. There is no demonstrated parenchymal abnormality. There is no demonstrated pleural abnormality. Normal heart and pericardium. Normal mediastinum and adriana. Normal visualized pulmonary arteries. Normal visualized aortic arch and descending thoracic aorta. Normal visualized thoracic spine. Normal visualized ribs, clavicles, and shoulders. There is no demonstrated abnormality of the visualized soft tissue structures of the upper abdomen. RAD/Chest PA and Lateral IMPRESSION: No radiographic evidence of an acute abnormality. Reading Location: [facility]
== END | disposition home or self-care (01) ==
LOC: MTRAD 08:54
PROVIDERS: PCP Family Medicine; Referring Provider Family Medicine; Visit Provider Family Medicine
DX: K44.9 Diaphragmatic hernia without obstruction or gangrene (principal)
CPT/HCPCS: 71046

== ENCOUNTER → 2025-05-24 | Outpatient (CLI) | payer MEDICARE, SELFPAY ==
--- NOTE | 2025-05-24 11:38 | RAD_ITS ---
EXAM: XR Right Hand Complete, 3 or More Views CLINICAL INDICATION: CONTRACTURE, RIGHT HAND TECHNIQUE: Frontal, lateral and oblique views of the right hand. COMPARISON: No relevant prior studies available. FINDINGS: BONES/JOINTS: Mild degenerative changes of the intercarpal joints. Mild degenerative changes of the 1st carpometacarpal joint. Fixation screw through the 1st metacarpal and proximal phalanx. Intact hardware. Anatomic position. No acute fracture. No dislocation. SOFT TISSUES: Soft tissue swelling. RAD/Hand Min 3 Views IMPRESSION: Degenerative changes as above. Reading Location: [id number]
== END | disposition home or self-care (01) ==
LOC: RAD 11:09
PROVIDERS: PCP Family Medicine; Referring Provider Surgery Plastic and Reconstructive Surgery; Visit Provider Surgery Plastic and Reconstructive Surgery
DX: M24.541 Contracture, right hand (principal)
CPT/HCPCS: 73130